=== PATIENT | male | born 1995 | race Caucasian/White ===

== ENCOUNTER 2023-04-21 03:51 | Emergency (ER) | payer OTHER ==
[~2023-04-21] VITALS: Ht 177.8 cm; Wt 72.3 kg
[~2023-04-21 03:51] MED LIST: FLOM0.4C39 PO; HYDR-3713 PO; ONDA-83 PO; ONDA4SOL PO
[2023-04-21 04:37] LABS: BASO # 0.1 10^3/uL (0.0-0.2); BASO % 0.5 % (0.0-1.0); EOS # 0.1 10^3/uL (0.0-0.5); EOS % 1.3 % (0.0-3.0); HEMATOCRIT 35.1 % (42.0-52.0); HEMOGLOBIN 12.6 g/dl (13.5-17.5); LYMPH # 1.8 10^3/uL (1.5-5.0); LYMPH % 17.1 % (24.0-44.0); MEAN CORPUSCULAR HEMOGLOBIN 30.4 pg (27.0-33.0); MEAN CORPUSCULAR HGB CONC 35.9 g/dl (32.0-36.5); MEAN CORPUSCULAR VOLUME 84.8 fl (80.0-96.0); MONO # 0.4 10^3/uL (0.0-0.8); MONO % 4.1 % (2.0-8.0); NEUTROPHILS # 8.1 10^3/uL (1.5-8.5); NEUTROPHILS % 76.6 % (36.0-66.0); PLATELET COUNT, AUTOMATED 271 10^3/uL (150-450); RED BLOOD COUNT 4.14 10^6/uL (4.30-6.10); WHITE BLOOD COUNT 10.5 10^3/uL (4.0-10.0)
[2023-04-21 05:04] LABS: BLOOD UREA NITROGEN 15 MG/DL (9-23); CALCIUM LEVEL 9.8 MG/DL (8.5-10.1); CARBON DIOXIDE LEVEL 26 MMOL/L (20-31); CHLORIDE LEVEL 105 MMOL/L (98-107); CREATININE FOR GFR 0.89 MG/DL (0.70-1.30); GLOMERULAR FILTRATION RATE > 60.0 (>60); GLUCOSE, FASTING 111 MG/DL (60-100); POTASSIUM SERUM 3.9 MMOL/L (3.5-5.1); SODIUM LEVEL 138 MMOL/L (136-145)
[2023-04-21 05:09] LABS: RSV AMPLIFICATION NEGATIVE (NEGATIVE)
[2023-04-21] MEDS ORDERED: NS 1,000 ML IV ONE (07:00)
[2023-04-21] MEDS ORDERED: MORPHINE 4 MG/ML 1ML VIAL IV ONE ×2 (07:00→08:35)
[2023-04-21 08:31] VITALS: BP 156/95; TEMP 97.5
[2023-04-21 08:39] VITALS: O2SAT 98
== END 2023-04-21 08:40 | disposition home or self-care (01) ==
LOC: M ED 03:51
DX: N20.1 Calculus of ureter (principal); F17.200 Nicotine dependence, unspecified, uncomplicated; Z79.899 Other long term (current) drug therapy

== ENCOUNTER 2023-04-21 08:45 | Day surgery (SDC) | payer OTHER ==
[~2023-04-21] VITALS: Ht 177.8 cm; Wt 72.1 kg
[~2023-04-21 08:45] MED LIST changes: +ceFAZolin SOD 2 GM in IV 1 EA IV ONE
[2023-04-21] MEDS ORDERED: LIDOCAINE 2% 100MG/5ML SDV (FOR ANES.) As Ordered ONE (09:45)
[2023-04-21] MEDS ORDERED: ONDANSETRON 4MG 2ML VIAL As Ordered ONE (09:45)
[2023-04-21] MEDS ORDERED: KETAMINE HCL 200MG/20ML VIAL As Ordered ONE (09:45)
[2023-04-21] MEDS ORDERED: GLYCOPYRROLATE INJ 0.2 MG/ML 2 ML VIAL As Ordered ONE (09:45)
[2023-04-21] MEDS ORDERED: MIDAZOLAM INJ 2MG/2ML VIAL As Ordered ONE (09:45)
[2023-04-21] MEDS ORDERED: propofoL 200 MG/20 ML VIAL As Ordered ONE (09:45)
[2023-04-21] MEDS ORDERED: ACETAMINOPHEN 1000MG 100ML IV BAG As Ordered ONE (09:45)
[2023-04-21] MEDS ORDERED: fentaNYL 100 MCG/2 ML INJECTION As Ordered ONE (09:45)
[2023-04-21] MEDS ORDERED: fentaNYL 100 MCG/2 ML INJECTION IV PRN (10:15)
[2023-04-21] MEDS ORDERED: LR 1,000 ML IV SCH (10:15)
[2023-04-21] MEDS ORDERED: oxyCODONE 5MG TAB PO PRN (10:15)
[2023-04-21] MEDS ORDERED: ONDANSETRON 4MG 2ML VIAL IV PRN (10:15)
[2023-04-21] MEDS ORDERED: PERCOCET 5MG/325MG TAB PO PRN (10:30)
[2023-04-21 12:30] VITALS: BP 128/80; TEMP 96.9; O2SAT 99
== END 2023-04-21 12:30 | disposition home or self-care (01) ==
LOC: M SDC 08:45
PROVIDERS: ATTEND Urology
DX: N20.1 Calculus of ureter (principal); F17.210 Nicotine dependence, cigarettes, uncomplicated; Z79.899 Other long term (current) drug therapy
CPT/HCPCS: 50590; J0131; J0690; J1100; J2250; J2405; J3010